=== PATIENT | male | born 1950 | race Caucasian/White ===

== ENCOUNTER 2021-12-25 14:28 | Outpatient (CLI) | payer MEDICARE | END 2021-12-25 14:29 | disposition critical access hospital (66) | LOC: EMS 14:28 | DX: M79.89 Other specified soft tissue disorders (principal); R23.8 Other skin changes; Z79.01 Long term (current) use of anticoagulants | CPT/HCPCS: A0425; A0429 ==

== ENCOUNTER 2021-12-25 14:50 | Emergency (ER) | payer MEDICARE, OTHER ==
--- NOTE | 2021-12-25 15:04 | ED Physician Documentation ---
History of Present Illness - Stated complaint Stated Complaint: R WRIST PX/BLEEDING - History obtained from History obtained from: Patient, EMS - Additonal information Additional information: The patient comes to the emergency department with chief complaint of bleeding and color change at right wrist puncture site after angiogram and stent placement yesterday. The patient was seen at [facility], where cardiac catheterization was done. Patient takes Eliquis in yesterday, when the dressing was removed, noticed that blood spurted out of the wound. The nurse rewrapped the area with a small gauze and Tegaderm and had the patient put a brace on his wrist. He was told to take the brace off at 1230 today. Patient states that when he took the brace off, more around 1400, He noticed bruising around the area and some mild swelling. He also noticed a purple jaiden going along his mid wrist on the flexor aspect, extending vertically, and was concerned that he may have an infection. He denies any redness of the arm. No warmth or excessive tenderness. No fever or chills. The patient denies any other complaints at this time. No chest pain or shortness of breath. Review of Systems Ten Systems: 10 systems reviewed and negative Constitutional: reports: Reviewed and negative Eyes: reports: Reviewed and negative Ears: reports: Reviewed and negative Nose: reports: Reviewed and negative Throat: reports: Reviewed and negative Cardiac: reports: Reviewed and negative Respiratory: reports: Reviewed and negative GI: reports: Reviewed and negative : reports: Reviewed and negative Skin: reports: Other (Ecchymosis right wrist.) Musculoskeletal: reports: Extremity pain, Extremity swelling Neurologic: reports: Reviewed and negative Psychiatric: reports: Reviewed and negative Endocrine: reports: Reviewed and negative Immunocompromised: reports: Reviewed and negative PD PAST MEDICAL HISTORY - Past Medical History Cardiovascular: None Respiratory: None Endocrine/Autoimmune: None GI: Colon polyps : Benign prostate hypertrophy HEENT: None Psych: Depression Musculoskeletal: Osteoarthritis Derm: None - Past Surgical History General: Colonoscopy - Present Medications Home Medications: Ambulatory Orders Medication Instructions Recorded Confirmed No Known Home Medications 10/22/13 10/22/13 - Allergies Allergies/Adverse Reactions: Allergies Allergy/AdvReac Type Severity Reaction Status Date / Time Sulfa (Sulfonamide Allergy Unknown Verified 10/22/13 13:59 Antibiotics) PD ED PE NORMAL - Vitals Vital signs reviewed: Yes - General General: Alert and oriented X 3, No acute distress, Well developed/nourished - HEENT HEENT: Atraumatic, PERRL, EOMI, Moist mucous membranes - Neck Neck: Supple, no meningeal sign - Cardiac Cardiac: RRR, No murmur, Strong equal pulses - Respiratory Respiratory: No respiratory distress, Clear bilaterally - Derm Derm: Warm and dry, Other (Ecchymosis noted from thenar eminence up to mid forearm on the radial aspect right side. A 5 cm vertical, purple appearing streak is noted over the palmaris longus tendon. No particular tenderness. Mild edema in the vicinity of ecchymosis.) - Extremities Extremities: No deformity, Other (No joint edema or pain with range of motion.) - Neuro Neuro: Alert and oriented X 3 - Psych Psych: Normal mood, Normal affect Results - Vitals Vitals: Oxygen O2 Source Room air PD MEDICAL DECISION MAKING - ED course Complexity details: considered differential, d/w patient ED course: The patient was actually fairly well-appearing and I discussed with him that I do not find any evidence of infection. Additionally, he does not have much edema of his right wrist and there is no mass. No pulsatile enlargement. The patient has a good radial pulse and I have discussed with him that I would leave the current dressing in place and continue to wear the brace over the next couple of days. The patient may then remove the dressing and gently use the wrist without the brace. 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 Departure - Departure Disposition: 01 Home, Self Care Clinical Impression: Postoperative bleeding from incision Condition: Stable Instructions: ED Wound Check Post Op Bleeding Comments: At this point in time, your dressing site actually looks very good. It is very common after cardiac catheterization to see bruising and a wide radius around the puncture site, due to the fact that the puncture takes place in an artery. The bruising will resolve on its own and will most likely take a week or 2 to do so. You do not have any evidence of ongoing bleeding at this time. Please keep the dressing and the brace in place for a couple more days, after which you may take it off. If you notice a red streak rising up your arm above the brace and bruised area, please have it rechecked.
[2021-12-25 15:14] VITALS: BP 118/57
--- OUTSIDE RECORDS SUMMARY | 2021-12-25 15:14 | EXTERNAL MEDICAL SUMMARY RPT | Continuity of Care Document ---
:1950 Author Organization [facility] Address [address] [place] [address] Phone Care Team Providers Name Role Phone Chirag Unavailable Unavailable Allergies No information. Encounters No information. Medications date description facility 20211129 Metoprolol Tartrate 25 MG Oral Tablet [facility] 20211129 apixaban 5 [facility] Problems date description facility 20211216 Unspecified atrial fibrillation [facility] 20211216 Dyspnea, unspecified [facility] 20211216 Chest pain, unspecified [facility] 20211216 Acute pulmonary edema [facility] 20211216 AFIB; CP [facility] Procedures date description facility 20211128 General Physician [facility] 20211128 [facility] 20211128 Diagnosis [facility] Results No information. Vital Signs date measurement value source 20211128 weight_standard 170 lb 20211128 weight_metric 77.11 kg 20211128 temperature_standard 98.5 F 20211128 temperature_metric 36.94 C 20211128 respiration_rate 29 /min 20211128 height_standard 73 in 20211128 height_metric 185.42 cm 20211128 heart_rate 141 /min 20211128 BP_systolic 137 mm[Hg] 20211128 BP_diastolic 84 mm[Hg] 20211129 temperature_standard 97.8 F 20211129 temperature_metric 36.56 C 20211129 respiration_rate 16 /min 20211129 heart_rate 72 /min 20211129 BP_systolic 99 mm[Hg] 20211129 BP_diastolic 59 mm[Hg]
== END 2021-12-25 15:28 | disposition home or self-care (01) ==
LOC: EDUNIT# → ED 14:50
DX: L76.22 Postprocedural hemorrhage of skin and subcutaneous tissue following other procedure (principal)
CPT/HCPCS: 99282; 99283